=== PATIENT | female | born 1975 | race Caucasian/White ===

== ENCOUNTER 2017-10-04 23:47 | Emergency (ER) | END 2017-10-05 05:25 | disposition home or self-care (01) ==

== ENCOUNTER 2018-02-23 22:57 | Emergency (ER) | END 2018-02-24 03:00 | disposition home or self-care (01) ==

== ENCOUNTER 2018-03-22 23:49 | Emergency (ER) | END 2018-03-23 02:59 | disposition home or self-care (01) ==

== ENCOUNTER 2018-05-01 21:04 | Emergency (ER) | END 2018-05-02 00:24 | disposition home or self-care (01) ==

== ENCOUNTER 2019-02-15 23:00 | Emergency (ER) | payer OTHER ==
[~2019-02-15] VITALS: Ht 167.6 cm; Wt 54.4 kg
[~2019-02-15 23:00] MED LIST: ALBU18HF INHALATION; ALBU8.5H8 INH; CETI10CA PO; DOXY100T20 PO; FLUT100D INHALATION; GUAI120S25 PO; MED4DP PO
[2019-02-15 23:02] VITALS: Ht 167.6 cm; Wt 54.4 kg
--- NOTE | 2019-02-16 02:41 | ERD ---
ER Documentation Chief Complaint Chief Complaint MED REFILL HPI Patient is a 44-year-old female with past medical history of asthma presenting to the clinic for refills for albuterol HFA. Patient reports she ran out of her medication denies all review of system. Patient states that she has an appointment with her PCP on the cannot have the medication ready until then. ROS All systems reviewed and are negative except as per history of present illness. Medications Home Meds Active Scripts Albuterol Sulfate* (Proair HFA*) 8.5 Gm Hfa.aer.ad, 2 PUFF INH Q4, #1 INHALER Prov:YADIEL VINES PA-C 02/16/19 Albuterol Sulfate* (Ventolin HFA*) 18 Gm Hfa.aer.ad, 2 PUFF INHALATION Q4H, #1 INHALER Prov:ROXY KIMBALL PA-C 05/01/18 Albuterol Sulfate* (Proair HFA*) 8.5 Gm Hfa.aer.ad, 2 PUFF INH Q4, #1 INHALER Prov:NASIR CONNOR 03/23/18 Fluticasone Propionate (Flovent Diskus) 100 Mcg Disk.w.dev, 1 PUFF INHALATION BID, #1 DISK Prov:NASIR CONNOR 03/23/18 Cetirizine Hcl* (Zyrtec*) 10 Mg Capsule, 10 MG PO DAILY, #30 TAB.CHEW Prov:LEO CASILLAS NP 02/24/18 Svsckdazxoi-P-Vgzmjqilyu Hb* (Guaifenesin* DM Syrup) 120 Ml Syrup, 10 ML PO Q4H PRN for COUGH, #120 ML Prov:LEO CASILLAS NP 02/24/18 Albuterol Sulfate* (Proair HFA*) 8.5 Gm Hfa.aer.ad, 2 PUFF INH Q4H PRN for WHEEZING AND SOB, #1 INHALER Prov:LEO CASILLAS NP 02/24/18 Albuterol Sulfate* (Proair HFA*) 8.5 Gm Hfa.aer.ad, 2 PUFF INH Q4, #1 INHALER 3 Refills Prov:NASIR CONNOR 10/05/17 Methylprednisolone* (Medrol* DOSE PACK) 4 Mg/Dose-Pack Tab.ds.pk, 4 MG PO . DIRECTED for 6 Days, PACKET Prov:NASIR CONNOR 10/05/17 Doxycycline Hyclate* (Doxycycline Hyclate*) 100 Mg Tablet.dr, 100 MG PO BID for 10 Days, TAB Prov:NASIR CONNOR 10/05/17 Allergies Allergies: Coded Allergies: No Known Allergy (Unverified , 03/22/18) PMhx/Soc History of Surgery: No Anesthesia Reaction: No Hx Neurological Disorder: No Hx Respiratory Disorders: Yes (asthma) Hx Cardiac Disorders: No Hx Psychiatric Problems: No Hx Miscellaneous Medical Probl: No Hx Alcohol Use: No Hx Substance Use: No Hx Tobacco Use: No FmHx Family History: No diabetes, No coronary disease, No other Physical Exam Vitals Vital Signs Date Temp Pulse Resp B/P (MAP) Pulse Ox O2 O2 Flow FiO2 Time Delivery Rate 02/15/19 97.7 81 18 118/58 100 23:02 (78) Physical Exam Const: No acute distress Head: Atraumatic Eyes: Normal Conjunctiva Resp: Clear to auscultation bilaterally Cardio: Regular rate and rhythm, no murmurs Neur: Awake and alert Psych: Normal Mood and Affect Procedures/MDM Patient was seen and evaluated for medication refill. Patient stable ready for discharge. Patient will be discharged with albuterol HFA. Follow-up with PCP. Departure Diagnosis: Primary Impression: Encounter for medication refill Condition: Stable Patient Instructions: Taking Medicine Safely Referrals: [facility] Additional Instructions: Patient advised to return to the ED immediately for new or worsening symptoms. Patient advised to follow up with primary care provider in the next 24-48 hours. Patient verbalized understanding and agrees with treatment plan and course of action. If patient has no primary care they may follow up with [facility] + [facility] [address] [place] [phone] [place] [facility] [place] [address] [place] [address] or [facility] [address] [place] [address] YADIEL VINES PA-C Feb 16, 2019 02:41
[2019-02-16] MEDS ORDERED: ALBU8.5H8 INH (02:42)
[2019-02-16 03:05] VITALS: BP 124/64; PULSE 77; RESP 20
== END 2019-02-16 03:06 | disposition home or self-care (01) ==
LOC: FTE 23:00
DX: Z76.0 Encounter for issue of repeat prescription (principal); J45.909 Unspecified asthma, uncomplicated
CPT/HCPCS: 99281